=== PATIENT | female | born 1985 | race Caucasian/White ===

== ENCOUNTER 2017-10-19 12:39 | Emergency (ER) | payer MEDICAID ==
[~2017-10-19] VITALS: Wt 52.2 kg
[2017-10-19] MEDS ORDERED: ACETAMINOPHEN 500 MG TAB PO STA (13:19)
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
== END 2017-10-19 13:30 | disposition home or self-care (01) ==
LOC: FTE 12:39
DX: R51 Headache (principal); M25.511 Pain in right shoulder; M25.512 Pain in left shoulder
CPT/HCPCS: Z7502; Z7610; 99282